=== PATIENT | male | born 1940 | race Caucasian/White ===

== ENCOUNTER → 2017-02-27 | Outpatient (CLI) | payer MEDICARE ==
[~2017-02-27] MED LIST: ASPI325T4 PO; ATOR20TA9 PO; BIMA2.5D EACHEYE; CHOL10003 PO; FURO20TA3 PO; LISI40TA PO; PARS1TAB PO; TIMO5DRO5 EACHEYE; VIT1CAPS42 PO; VITA1TAB19 PO; VITA400C14 PO; ZINC50TA28 PO
[2017-02-27 15:21] LABS: ASPARTATE AMINO TRANSFERASE 17 U/L (15-37); BLOOD UREA NITROGEN 21 mg/dL (7-18)
== END | disposition home or self-care (01) ==
LOC: STAR 14:00
PROVIDERS: ATTEND Orthopaedic Surgery
DX: Z01.818 Encounter for other preprocedural examination (principal)
CPT/HCPCS: 36415; 80053; 81003; 85025; 87081; 93005

== ENCOUNTER 2017-03-06 08:19 | Inpatient (IN) | payer MEDICARE ==
[~2017-03-06] VITALS: Ht 175.3 cm; Wt 102.0 kg
[~2017-03-06 08:19] MED LIST changes: +EPINEPHRINE 1 MG/ML, 1ML ONE; +KETOROLAC 60 MG/2 ML ONE; +ROPIvacaine/PF 0.2%, 20 ML ONE; +SODIUM CHLORIDE 0.9% 50 ML ONE; +TRANEXAMIC ACID 100 MG/ML, 10ML ONE
[2017-03-06] MEDS ORDERED: LACTATED RINGERS 1,000 ML IV SCH (08:30)
[2017-03-06] MEDS ORDERED: MIDAZOLAM 1 MG/ML, 2ML ONE (10:02)
[2017-03-06] MEDS ORDERED: FENTANYL PF 100 MCG/2ML ONE ×3 (10:02→13:31)
[2017-03-06] MEDS ORDERED: CEFAZOLIN 1,000 MG ONE (11:10)
[2017-03-06] MEDS ORDERED: LIDOCAINE 2% 100MG/5ML SYRINGE ONE (11:10)
[2017-03-06] MEDS ORDERED: PROPOFOL 10 MG/ML, 20ML ONE (11:10)
[2017-03-06] MEDS ORDERED: hydrALAzine 20 MG/ML, 1ML IV PRN (12:00)
[2017-03-06] MEDS ORDERED: LABETALOL 5MG/ML, 20ML IV PRN (12:00)
[2017-03-06] MEDS ORDERED: ONDANSETRON 2MG/ML, 2ML IVPush PRN (12:00)
[2017-03-06] MEDS ORDERED: HYDROmorphone 1 MG/ML, 1ML IV PRN ×2 (12:00→13:00)
[2017-03-06] MEDS ORDERED: OXYcodone 5 MG/5 ML ORAL.SOL UDC PO PRN (12:00)
[2017-03-06] MEDS ORDERED: FENTANYL PF 100 MCG/2ML IV PRN (12:00)
[2017-03-06] MEDS ORDERED: OXYcodone 5 MG/5 ML ORAL.SOL UDC ONE (12:50)
[2017-03-06] MEDS ORDERED: HYDROmorphone 2 MG/ML, 1ML ONE (12:50)
[2017-03-06] MEDS: HYDROcodone/APAP 10/325 MG TABLET PO SCH ×3 (13:00→22:07)
[2017-03-06] MEDS ORDERED: PROMETHAZINE 25 MG/ML, 1ML IM PRN (13:00)
[2017-03-06] MEDS ORDERED: OXYcodone IR 5MG TABLET PO PRN (13:00)
[2017-03-06] MEDS ORDERED: BISACODYL 10 MG SUPP PR PRN (13:00)
[2017-03-06] MEDS ORDERED: ONDANSETRON 4 MG TABLET PO PRN (13:00)
[2017-03-06] MEDS ORDERED: ONDANSETRON 2MG/ML, 2ML IV PRN (13:00)
[2017-03-06] MEDS ORDERED: SCOPOLAMINE PATCH, 1.5MG PATCH.TD72 TD SCH (13:00)
[2017-03-06] MEDS ORDERED: HYDROcodone/APAP 10/325 MG TABLET PO PRN (13:00)
[2017-03-06] MEDS ORDERED: ALUMINUM/MAG/SIMETHICONE 30 ML UDC PO PRN (13:00)
[2017-03-06] MEDS ORDERED: MAGNESIUM HYDROXIDE 8%, 30ML UDC PO PRN (13:00)
[2017-03-06] MEDS ORDERED: DIPHENHYDRAMINE 25 MG CAPSULE PO PRN (13:00)
[2017-03-06] MEDS ORDERED: ZOLPIDEM 5MG TABLET PO PRN (13:00)
[2017-03-06] MEDS ORDERED: DIAZEPAM 5 MG TABLET PO PRN (13:00)
[2017-03-06] MEDS ORDERED: ACETAMINOPHEN 650 MG/20.3 ML UDC PO PRN (13:00)
[2017-03-06] MEDS ORDERED: SENNA/DOCUSATE TABLET PO PRN (13:00)
[2017-03-06] MEDS ORDERED: PROMETHAZINE 12.5 MG SUPP PR PRN (13:00)
[2017-03-06] MEDS ORDERED: TRANEXAMIC ACID 1,000 MG in SODIUM CHLORIDE 0.9% 100 ML IVPB ONE (13:15)
[2017-03-06] MEDS: D5%-0.45% NACL 1,000 ML IV SCH ×2 (14:55→22:07)
[2017-03-06] MEDS: TAMSULOSIN 0.4 MG CAP.ER.24H PO SCH (17:52)
[2017-03-06] MEDS: CEFAZOLIN PMX 2GM/50ML 50 ML IVPB SCH (18:15)
[2017-03-06 20:51] VITALS: BP 97/58
[2017-03-06] MEDS ORDERED: ATORVASTATIN 20 MG TABLET PO SCH (21:00)
[2017-03-06] MEDS: TIMOLOL OPHTH 0.5%, 5ML EACHEYE SCH (22:08)
[2017-03-06] MEDS: PREGABALIN 75 MG CAPSULE PO SCH (22:08)
[2017-03-06] MEDS: DOCUSATE 100 MG CAPSULE PO SCH (22:08)
[2017-03-06] MEDS: ASPIRIN 81 MG TABLET EC PO SCH (22:45)
[2017-03-07 00:30] VITALS: BP 96/55
[2017-03-07] MEDS: D5%-0.45% NACL 1,000 ML IV SCH ×2 (01:05→12:42)
[2017-03-07] MEDS: HYDROcodone/APAP 10/325 MG TABLET PO SCH ×4 (01:05→10:51)
[2017-03-07] MEDS: CEFAZOLIN PMX 2GM/50ML 50 ML IVPB SCH (02:40)
[2017-03-07 03:50] VITALS: BP 92/50
[2017-03-07] MEDS ORDERED: DEXAMETHASONE 4 MG/ML, 1ML IVPush SCH (06:00)
[2017-03-07] MEDS: ASPIRIN 81 MG TABLET EC PO SCH ×2 (06:39→17:40)
[2017-03-07] MEDS ORDERED: LISINOPRIL 20 MG TABLET PO SCH (09:00)
[2017-03-07] MEDS ORDERED: MULTIVITAMINS/MINERALS TABLET PO SCH (09:00)
[2017-03-07] MEDS ORDERED: FUROSEMIDE 20 MG TABLET PO SCH (09:00)
[2017-03-07 09:23] VITALS: BP 138/66
[2017-03-07] MEDS: DOCUSATE 100 MG CAPSULE PO SCH (09:39)
[2017-03-07] MEDS: PREGABALIN 75 MG CAPSULE PO SCH (09:39)
[2017-03-07] MEDS: TAMSULOSIN 0.4 MG CAP.ER.24H PO SCH (09:40)
[2017-03-07] MEDS: TIMOLOL OPHTH 0.5%, 5ML EACHEYE SCH (09:41)
[2017-03-07] MEDS ORDERED: KETOROLAC 30 MG/1 ML IV SCH (13:00)
[2017-03-07 13:24] VITALS: BP 117/57
[2017-03-07] MEDS ORDERED: HYDR-3307 PO (16:32)
== END 2017-03-07 16:59 | disposition home or self-care (01) | DRG 470 ==
LOC: ORIP 08:19 → 4NOR 14:10 → DCLOUNGE 03-07 16:39
PROVIDERS: ADMIT Orthopaedic Surgery; ATTEND Orthopaedic Surgery
PROC: 0SRD0J9 Replacement of Left Knee Joint with Synthetic Substitute, Cemented, Open Approach (ICD-10-PCS; principal; 2017-03-06 11:00)
DX: M17.12 Unilateral primary osteoarthritis, left knee (principal); E78.5 Hyperlipidemia, unspecified; H40.9 Unspecified glaucoma; I10 Essential (primary) hypertension; M21.162 Varus deformity, not elsewhere classified, left knee; Z87.891 Personal history of nicotine dependence
CPT/HCPCS: 36415; 85014; 85018; C1713; J0171; J0690; J1100; J1170; J1885; J2250; J2405; J2550; J2704; J2795; J3010; C1776; J7120